=== PATIENT | male | born 1970 | race Asian ===

== ENCOUNTER 2019-12-08 08:29 | Day surgery (SDC) | payer OTHER ==
[2019-12-08 08:52] VITALS: BMI 27.2
[2019-12-08] MEDS ORDERED: MIDAZOLAM HCL 2 MG/2 ML SINGLE DOSE VIAL ONE (10:21)
[2019-12-08] MEDS ORDERED: SUCCINYLCHOLINE CHLORIDE 200 MG/10 ML SYRINGE ONE (10:29)
[2019-12-08] MEDS ORDERED: PROPOFOL 20 ML ONE ×2 (10:29)
[2019-12-08] MEDS ORDERED: DEXAMETHASONE SOD PHOSPHATE 4 MG/1 ML VIAL ONE (10:44)
[2019-12-08] MEDS ORDERED: LIDOCAINE HCL/PF 2% SDV 5ML VIAL ONE (10:44)
[2019-12-08] MEDS ORDERED: KETOROLAC TROMETHAMINE 30 MG/1 ML VIAL ONE (10:44)
[2019-12-08] MEDS ORDERED: ONDANSETRON 4 MG/2 ML VIAL ONE (10:44)
[2019-12-08] MEDS ORDERED: LIDOCAINE 1%/EPI 1:100000 (20 ML MULTI DOSE VIAL) ONE (10:44)
[2019-12-08] MEDS ORDERED: LIDOCAINE HCL 2% JELLY (5 ML/TUBE) ONE (10:44)
[2019-12-08] MEDS ORDERED: ceFAZolin SODIUM 1 GM VIAL ONE (10:44)
[2019-12-08] MEDS ORDERED: LIDOCAINE 1%/EPI 1:100000 (50 ML MULTI DOSE VIAL) NR ONE (10:57)
[2019-12-08] MEDS ORDERED: oxyCODONE HCL 5 MG TABLET PO PRN ×2 (12:27)
[2019-12-08] MEDS ORDERED: ONDANSETRON 4 MG/2 ML VIAL IVPUSH PRN (12:27)
[2019-12-08] MEDS ORDERED: PROMETHAZINE HCL 25 MG/1 ML VIAL IVPUSH PRN (12:27)
[2019-12-08 13:35] VITALS: TEMP 98
[2019-12-08 13:55] VITALS: BP 119/81; PULSE 77
--- NOTE | 2019-12-09 18:59 | OP ---
DATE OF OPERATION: 12/08/2019 PREOPERATIVE DIAGNOSIS: Left clavicle displaced comminuted fracture. POSTOPERATIVE DIAGNOSIS: Left clavicle displaced comminuted fracture. OPERATIVE PROCEDURE: Open reduction, internal fixation of left clavicle fracture. SURGEON: Luis Ramirez MD CAFETERIA ASSOCIATE: LEXA Terrell ANESTHESIA: General. COMPLICATIONS: None. ESTIMATED BLOOD LOSS: Minimal. INDICATION FOR PROCEDURE: The patient is a 48-year-old male with the above finding, indicated for operative treatment. The risks, benefits and alternatives were discussed with the patient at length and proper informed consent was obtained. DESCRIPTION OF PROCEDURE: After proper identification of the patient and the correct operative site, the patient was brought to the operating room and placed supine on the operating table with all bony prominences well padded. General anesthesia was provided and adequate for the procedure. Intravenous antibiotics given. A time-out procedure was performed. The patient was placed into the semi-beach chair position with all points of contact well padded and in-line cervical position maintained throughout the procedure. The left shoulder girdle was prepped and draped in the usual sterile fashion. A transverse incision was made along the course of the clavicle. The incision was taken sharply through the skin with blunt dissection of the subcutaneous tissue, carefully preserving the supraclavicular nerves. The fascia over the clavicle was divided and the fracture was identified. Several comminuted fragments were noted within the area and were left attached to their soft tissue attachments. The clavicle fracture was reduced with two reduction clamps and an Acumed clavicle plate was placed with three proximal and three distal screws placed on each side. The middle screw on both sides was a non-locking bicortical screw and the medial and lateral screws on both sides were locking screws. This provided secure, stable fixation with excellent reduction. The comminuted fragments were teased into place to provide additional support and vascularized bone graft-like effect. The fragments were too small to accommodate internal fixation. In addition, internal fixation would have required stripping of the soft tissue. However, the fragments did fit nicely in their anatomic spot and they were held there with no movement. The fascia was then repaired over the clavicle using 3-0 Vicryl suture. The skin was repaired in layers using 3-0 Vicryl and 4-0 Monocryl sutures as well as Dermabond. Sterile dressings were applied. A sling was placed. The patient was reversed from anesthesia and brought to the recovery room in stable condition having tolerated the procedure well. Constantin Miller, the executive marketing assistant, was integral throughout the procedure. The procedure could not have been performed without a skilled operative executive marketing assistant. LUIS RAMIREZ M.D. [id number]
== END 2019-12-08 14:00 | disposition home or self-care (01) ==
LOC: FASU 08:29
PROVIDERS: ATTEND Orthopaedic Surgery Hand Surgery
PROC: 0PSB04Z Reposition Left Clavicle with Internal Fixation Device, Open Approach (ICD-10-PCS; principal; 2019-12-08 10:57)
DX: S42.022A Displaced fracture of shaft of left clavicle, initial encounter for closed fracture (principal); X58.XXXA Exposure to other specified factors, initial encounter; Y93.9 Activity, unspecified; Y92.9 Unspecified place or not applicable
CPT/HCPCS: 23515; C1713; 73000-TC-LT-FY; 76000-TC-FY; 94760

== ENCOUNTER 2022-04-26 06:27 | Day surgery (SDC) | payer OTHER ==
[2022-04-25 10:31] VITALS: BMI 27.2
[2022-04-26] MEDS ORDERED: MIDAZOLAM HCL 2 MG/2 ML SINGLE DOSE VIAL ONE (07:41)
[2022-04-26] MEDS ORDERED: BUPIVACAINE HCL 50 ML ONE ×2 (07:44→08:29)
[2022-04-26] MEDS ORDERED: EPINEPHrine 1:1,000 1,000 MCG/ML ML ONE (07:44)
[2022-04-26] MEDS ORDERED: PROPOFOL 20 ML ONE ×2 (07:50)
[2022-04-26] MEDS ORDERED: SUCCINYLCHOLINE CHLORIDE 200 MG/10 ML SYRINGE ONE (07:50)
[2022-04-26] MEDS ORDERED: ONDANSETRON 4 MG/2 ML VIAL IVPUSH PRN (10:51)
[2022-04-26] MEDS ORDERED: oxyCODONE HCL 5 MG TABLET PO PRN (10:51)
[2022-04-26] MEDS ORDERED: PROMETHAZINE HCL 25 MG/1 ML VIAL IVPUSH PRN (10:51)
[2022-04-26] MEDS ORDERED: LACTATED RINGERS SOLUTION 1,000 ML IV SCH (11:00)
[2022-04-26] MEDS ORDERED: FENTANYL CITRATE/PF 50 MCG/ML VIAL ONE (11:32)
[2022-04-26 12:22] VITALS: BP 132/81; PULSE 88; TEMP 97.8
== END 2022-04-26 13:25 | disposition home or self-care (01) ==
LOC: FASU 06:27
PROVIDERS: ATTEND Orthopaedic Surgery Sports Medicine
PROC: 0RBM4ZZ Excision of Left Elbow Joint, Percutaneous Endoscopic Approach (ICD-10-PCS; principal; 2022-04-26 08:23)
DX: M19.022 Primary osteoarthritis, left elbow (principal)
CPT/HCPCS: 94760